=== PATIENT | female | born 1975 | race Caucasian/White ===

== ENCOUNTER 2016-06-02 15:34 | Emergency (ER) | payer BC ==
[~2016-06-02] VITALS: Ht 175.3 cm; Wt 58.5 kg
[2016-06-02 15:54] VITALS: TEMP 36.6; Ht 175.3 cm; Wt 58.5 kg
[2016-06-02] MEDS ORDERED: BCPILLS PO (16:09)
[2016-06-02] MEDS ORDERED: MULT-506 PO (16:09)
[2016-06-02] MEDS ORDERED: IBUP-1050 PO (16:10)
[2016-06-02] MEDS ORDERED: SODIUM CHLORIDE 0.9% 1000ML 1,000 ML IV STA (16:17)
--- NOTE | 2016-06-02 16:25 | EMERGENCY ROOM VISIT NOTE ---
History Report prepared by Vikas: Aliza Perkins Under the Supervision of: Dr. Hannah Bennett M.D. First contact with patient: 16:09 Chief Complaint: RECTAL BLEEDING Stated Complaint: BLEEDING AFTER HEMMORHOID REMOVAL Nursing Triage Summary: Pt reports had hemorrhoids removed at 1200 today at [facility] in [facility] Pt reports she started bleeding again at 1300 History of Present Illness The patient is a 40 year old female who presents to the Emergency Room with complaints of constant rectal bleeding beginning 3 hours ago. The patient states that she had multiple hemorrhoids removed today 4 hours ago at [facility]. She reports that she felt pain following the removal and began to have a lot of rectal bleeding. She notes that on her way to get the bleeding looked at she passed out and decided to come in to the ED. The patient reports that she lost consciousness on her way in to the ED as well. She notes associated bleeding, loss of consciousness, pain, and diarrhea. The patient states that her bleeding is worsened with moving her bowels. Source of History: patient Onset: 4 hours ago Position: other (rectal) Quality: other (bleeding) Timing: constant Modifying Factors (Worsening): other (bowel movement) Associated Symptoms: + LOC, + diarrhea Note: She notes associated bleeding and pain. Review of Systems See HPI for pertinent positives & negatives. A total of 10 systems reviewed and were otherwise negative. Past Medical & Surgical Medical Problems: (1) Hemorrhoids Family History No pertinent family history stated. Social History Smoking Status: Never Smoker Alcohol Use: none Drug Use: none Marital Status: in relationship Occupation Status: employed Current/Historical Medications Scheduled Control Pills ( Control Pills), 1 TAB PO DAILY Multivitamin (Multivitamin), 1 TAB PO DAILY Scheduled PRN Hydrocodone/Acetaminophen 5MG/325MG ([place] 5MG/325MG), 1-2 TABLETS PO Q6 PRN for Pain Ibuprofen (Advil), 300 MG PO DIRECTED PRN for Pain Allergies Coded Allergies: Penicillins (Verified Allergy, Unknown, childhood allergy, 06/02/16) Physical Exam Vital Signs Date Time Temp Pulse Resp B/P Pulse Ox O2 Delivery O2 Flow Rate FiO2 06/02/16 18:50 76 18 121/68 100 Room Air 06/02/16 17:53 74 16 117/79 100 Room Air 06/02/16 17:29 80 06/02/16 15:54 36.6 75 18 119/75 98 Room Air Physical Exam Vital signs reviewed. General: Well-appearing, in no significant distress. HEENT: No scleral icterus, PERRLA, neck supple. Atraumatic. Cardiovascular: Regular rate and rhythm, no extra sounds. Pulmonary: Clear to auscultation bilaterally, normal work of breathing. Abdomen: Soft, nontender, nondistended, positive bowel sounds. Musculoskeletal: Atraumatic, no peripheral edema. Neurologic: Patient awake alert and oriented x 3, full strength in all 4 extremities. Cranial nerves 2 through 12 grossly intact. Skin: Warm, dry, no rash Rectal: 1cm incision in the rectum with a smaller secondary incision, small clot removed, no active bleeding. Medical Decision & Procedures Laboratory Results 06/02/16 16:27 Red Blood Count 4.02, Mean Corpuscular Volume 93.0, Mean Corpuscular Hemoglobin 31.8, Mean Corpuscular Hemoglobin Concent 34.2, Mean Platelet Volume 10.6, Neutrophils (%) (Auto) 75.8, Lymphocytes (%) (Auto) 17.7, Monocytes (%) (Auto) 5.9, Eosinophils (%) (Auto) 0.1, Basophils (%) (Auto) 0.2, Neutrophils # (Auto) 7.33, Lymphocytes # (Auto) 1.71, Monocytes # (Auto) 0.57, Eosinophils # (Auto) 0.01, Basophils # (Auto) 0.02 06/02/16 16:27 Test 06/02/16 16:27 White Blood Count 9.67 K/uL (4.8-10.8) Red Blood Count 4.02 M/uL (4.2-5.4) Hemoglobin 12.8 g/dL (12.0-16.0) Hematocrit 37.4 % (37-47) Mean Corpuscular Volume 93.0 fL (80-100) Mean Corpuscular Hemoglobin 31.8 pg (25-34) Mean Corpuscular Hemoglobin Concent 34.2 g/dl (32-36) Platelet Count 139 K/uL (130-400) Mean Platelet Volume 10.6 fL (7.4-10.4) Neutrophils (%) (Auto) 75.8 % Lymphocytes (%) (Auto) 17.7 % Monocytes (%) (Auto) 5.9 % Eosinophils (%) (Auto) 0.1 % Basophils (%) (Auto) 0.2 % Neutrophils # (Auto) 7.33 K/uL (1.4-6.5) Lymphocytes # (Auto) 1.71 K/uL (1.2-3.4) Monocytes # (Auto) 0.57 K/uL (0.11-0.59) Eosinophils # (Auto) 0.01 K/uL (0-0.5) Basophils # (Auto) 0.02 K/uL (0-0.2) RDW Standard Deviation 44.7 fL (36.4-46.3) RDW Coefficient of Variation 13.1 % (11.5-14.5) Immature Granulocyte % (Auto) 0.3 % Immature Granulocyte # (Auto) 0.03 K/uL (0.00-0.02) Anion Gap 10.0 mmol/L (3-11) Est Creatinine Clear Calc Drug Dose 79.1 ml/min Estimated GFR () 95.3 Estimated GFR (Non- 82.2 BUN/Creatinine Ratio 14.3 (10-20) Calcium Level 8.7 mg/dl (8.5-10.1) Total Bilirubin 0.5 mg/dl (0.2-1) Direct Bilirubin 0.1 mg/dl (0-0.2) Aspartate Amino Transf (AST/SGOT) 14 U/L (15-37) Alanine Aminotransferase (ALT/SGPT) 15 U/L (12-78) Alkaline Phosphatase 33 U/L (45-117) Total Protein 6.6 gm/dl (6.4-8.2) Albumin 3.6 gm/dl (3.4-5.0) Laboratory results per my review. Medications Administered Medications (Trade) Dose Ordered Sig/Lorraine Route Start Time Stop Time Status Last Admin Dose Admin Sodium Chloride (Nss 1000ml) 1,000 ml @ 999 mls/hr Q1H1M STAT IV 06/02/16 16:17 06/02/16 17:17 DC 06/02/16 16:36 999 MLS/HR Acetaminophen/ Hydrocodone Bitart ([place] 5/325mg Home Pack) 1 homepack UD ONCE PO 06/02/16 18:45 06/02/16 18:46 DC 06/02/16 18:45 1 HOMEPACK ED Course 1614: Past medical records reviewed. The patient was evaluated in room C12A. A complete history and physical examination was performed. 1617: Sodium Chloride 1000 ml @ 999 mls/hr IV. 1845: Acetaminophen/Hydrocodone Bitart 1 homepack PO. 1900: Upon reevaluation, the patient appeared to have improvement of her symptoms. I discussed findings with the patient. She verbalized agreement of the treatment plan. The patient was discharged home. Medical Decision Differential diagnoses include post operative bleed, thrombosed hemorrhoid, GI bleed, diverticulitis. This patient was evaluated and appeared to be in no significant distress. Physical examination reveals an incision at the rectum that have a clot in no active bleeding. The clot was removed and no bleeding persisted. IV access was obtained and the patient was hydrated with normal saline solution. Patient' s telemetry reveals a normal sinus rhythm. Vital signs have remained stable. Patient was reassured. She had no further bleeding. She will continue with a pressure dressing and follow-up with her physicians this week. She will return to the ER for worsening of symptoms or any medical concerns. Impression Primary Impression: External hemorrhoid, bleeding Scribe Attestation The scribe's documentation has been prepared under my direction and personally reviewed by me in its entirety. I confirm that the note above accurately reflects all work, treatment, procedures, and medical decision making performed by me. Departure Information Dispostion Home / Self-Care Prescriptions Hydrocodone/Acetaminophen 5MG/325MG ([place] 5MG/325MG) Tab 1-2 TABLETS PO Q6 Y for Pain, #14 TAB Prov: Hannah Bennett M.D. 06/02/16 Referrals Shavonne Lackey D.O. (PCP) Forms HOME CARE DOCUMENTATION FORM, IMPORTANT VISIT INFORMATION, WORK / SCHOOL INSTRUCTIONS Patient Instructions A Signature Page Additional Instructions Diagnosis: Bleeding external hemorrhoid Sitz bath after each bowel movement. Keep a pressure dressing in place for 24 hours. Colace 100 mg twice daily for stool softening. [place] one tablet every 6 hours as needed for pain. Do not drive or take Tylenol with this medication. Avoid aspirin/ibuprofen/Aleve Follow-up with your physician for reevaluation this week. Return to the ER for worsening of symptoms or any medical concerns.
[2016-06-02 16:41] LABS: BASO % 0.2 %; BASO ABS # 0.02 K/uL (0-0.2); COMPLETE YES; EOS % 0.1 %; HEMATOCRIT 37.4 % (37-47); IG% 0.3 %; LYMPH % 17.7 %; LYMPH ABS # 1.71 K/uL (1.2-3.4); MEAN CORPUSCULAR HEMOGLOBIN 31.8 pg (25-34); MEAN CORPUSCULAR HGB CONC 34.2 g/dl (32-36); MEAN PLATELET VOLUME 10.6 fL (7.4-10.4); MONO % 5.9 %; NEUT % 75.8 %; PLATELET COUNT 139 K/uL (130-400); RED BLOOD COUNT 4.02 M/uL (4.2-5.4); WHITE BLOOD COUNT 9.67 K/uL (4.8-10.8)
[2016-06-02 17:01] LABS: BUN/CREATININE RATIO 14.3 (10-20); CALCIUM 8.7 mg/dl (8.5-10.1); CREATININE 0.89 mg/dl (0.60-1.20); POTASSIUM 4.2 mmol/L (3.5-5.1)
[2016-06-02] MEDS ORDERED: HYDR-5688 PO (18:42)
[2016-06-02] MEDS ORDERED: NORCO 5/325MG HOME PACK PO ONE (18:45)
[2016-06-02 18:50] VITALS: BP 121/68; PULSE 76; O2SAT 100
== END 2016-06-02 18:59 | disposition home or self-care (01) ==
LOC: C.EDB 15:34 → C.EDC 18:59
DX: K64.4 Residual hemorrhoidal skin tags (principal); K62.5 Hemorrhage of anus and rectum; Z98.890 Other specified postprocedural states; R19.7 Diarrhea, unspecified; Z79.3 Long term (current) use of hormonal contraceptives